=== PATIENT | male | born 1955 | race Caucasian/White ===

== ENCOUNTER 2019-10-03 08:12 | Day surgery (SDC) | payer OTHER, SELFPAY ==
[2019-10-03] VITALS (8 sets, daily range): BP systolic 91–118; BP diastolic 62–80; PULSE 53–67; RESP 16; TEMP 36.2–37.1; O2SAT 96–100; BMI 21.2
[2019-10-03] MEDS: Lactated Ringers 1,000 ML 100 ML IV (08:50)
--- NOTE | 2019-10-03 09:05 | PCM.HP.STD ---
Problem List (1) Screening for intestinal cancer Status: Acute History of Present Illness Date of Admission: 10/03/19 The patient is a 64 year old M who presents today via open access for screening colonoscopy. His previous colonoscopy was 11 years ago. He denies bright red blood per rectum or melena. States that his mother had colon cancer. He states that occasionally has more of a liquidy stool feels like something is closing off down into his rectum. He does not notice any bright red blood per rectum or melena. No abdominal pain. No unexpected weight loss. Past Medical History Allergies No Known Allergies Allergy (Verified 10/03/19 08:40) Home Medications: Ambulatory Orders Medication Instructions Recorded NK 09/30/19 Smoking Status: Never smoker Tobacco Use: Non-smoker Review of Systems Constitutional: Denies: Anorexia, Chills, Fever Cardiovascular: Denies: Chest Pain Respiratory: Denies: Cough, Shortness of Breath Gastrointestinal: Denies: Abdominal Pain, Melena Endocrine: Denies: Change in Body Habitus VTE Information - Inpt Only VTE Present on Admission: No Patient Problems: Active and Suspected Problems Screening for intestinal cancer (Acute) - Physical Exam Vitals/I&O's: Vital Signs Temp Pulse Resp BP Pulse Ox 98.7 F 67 16 118/80 100 10/03/19 08:43 10/03/19 08:43 10/03/19 08:43 10/03/19 08:43 10/03/19 08:43 Oxygen Delivery Method Room Air Weight: 152 lb 1.903 oz Body Mass Index (BMI) 21.2 General: Alert, Oriented x3, Cooperative, No apparent distress HEENT: Atraumatic Oral: Moist Mucosa Lungs: Clear to auscultation, Normal air movement Cardiovascular: Regular rate, Regular Rhythm Abdomen: Bowel Sounds Present, Soft, Non Tender, Non-Distended Extremities: No Calf Tenderness Neurological: - - Normal cognition Psych/Mental Status: Normal Affect Current Medications Lactated Ringer's () 1,000 mls @ 100 mls/hr IV .Q10H MYRTLE Last Admin: 10/03/19 08:50 Dose: 100 mls/hr Documented by: Assessment/Plan All Active Problems Screening for intestinal cancer (Acute) 64-year-old gentleman with a family history of colon cancer in his mother. Previous colonoscopy 11 years ago. I propose for him a screening colonoscopy with possible biopsy or polypectomy is indicated. He has had an opportunity to ask and have questions answered. He presents via our open access program today. We will proceed as noted. Mario Iqbal M.D., F.A.C.S.
--- NOTE | 2019-10-03 09:54 | OP.CCLET_ITS ---
10/03/2019 Mario Littlejohn [address] [place] [address] Re : Colonoscopy procedure for Arnol Jimenez Dear Dr. Littlejohn This procedure was performed on Thursday, October 03, 2019. My impressions and recommendations are as follows: Impressions : - Non-thrombosed internal hemorrhoids and internal hemorrhoids that prolapse with straining, but require manual replacement into the anal canal (Grade III) found on perianal exam. - Tortuous colon. - The examination was otherwise normal. - No specimens collected. Recommendations : - Discharge patient to home. - Resume previous diet. - Continue present medications. - Repeat colonoscopy in 5 years for surveillance. - Telephone my office in 3 days to discuss sensation of something blocking rectum. Could be hemorrhoids but also possibly degree of sigmoid volvulus. Consider Harini if he wants to proceed with investigation. My findings are described in the full procedure note, which is enclosed. If I can be of further assistance, please feel free to contact me at Doctor phone number(s): Work: . Sincerely, Mario Iqbal MD 10/03/2019 9:54:15 AM This report has been signed electronically.
--- NOTE | 2019-10-03 09:54 | OP.COLON_ITS ---
Patient Name: Arnol Jimenez Procedure Date: 10/03/2019 9:24 AM Date of : 1955 Age: 64 Procedure: Colonoscopy Indications: Family history of colon cancer in a first-degree relative Providers: Mario Iqbal MD Referring MD: Mario Iqbal MD Medicines: See the Anesthesia note for documentation of the administered medications Patient Profile: Last Colonoscopy: more than 10 years ago. Complications: No immediate complications. Procedure: Pre-Anesthesia Assessment: - Prior to the procedure, a History and Physical was performed, and patient medications and allergies were reviewed. The patient's tolerance of previous anesthesia was also reviewed. The risks and benefits of the procedure and the sedation options and risks were discussed with the patient. All questions were answered, and informed consent was obtained. Prior Anticoagulants: The patient has taken no previous anticoagulant or antiplatelet agents. ASA Grade Assessment: II - A patient with mild systemic disease. After reviewing the risks and benefits, the patient was deemed in satisfactory condition to undergo the procedure. After I obtained informed consent, the scope was passed under direct vision. Throughout the procedure, the patient's blood pressure, pulse, and oxygen saturations were monitored continuously. The colonoscope was introduced through the anus and advanced to the cecum, identified by appendiceal orifice and ileocecal valve. The colonoscopy was somewhat difficult due to a tortuous colon. Successful completion of the procedure was aided by changing the patient to a supine position. The patient tolerated the procedure well. The quality of the bowel preparation was good. The ileocecal valve and the appendiceal orifice were photographed. Scope In: 9:31:46 AM Scope Withdrawal Time 0 hours 6 minutes 9 seconds Scope Out: 9:46:51 AM Total Procedure Duration Time 0 hours 15 minutes 5 seconds Findings: The perianal exam findings include non-thrombosed internal hemorrhoids and internal hemorrhoids that prolapse with straining, but require manual replacement into the anal canal (Grade III). The colon (entire examined portion) was moderately tortuous. The exam was otherwise without abnormality. Impression: - Non-thrombosed internal hemorrhoids and internal hemorrhoids that prolapse with straining, but require manual replacement into the anal canal (Grade III) found on perianal exam. - Tortuous colon. - The examination was otherwise normal. - No specimens collected. Recommendation: - Discharge patient to home. - Resume previous diet. - Continue present medications. - Repeat colonoscopy in 5 years for surveillance. - Telephone my office in 3 days to discuss sensation of something blocking rectum. Could be hemorrhoids but also possibly degree of sigmoid volvulus. Consider Harini if he wants to proceed with investigation. Procedure Code(s): --- Professional --- 33939, Colonoscopy, flexible; diagnostic, including collection of specimen(s) by brushing or washing, when performed (separate procedure) Diagnosis Code(s): --- Professional --- K64.2, Third degree hemorrhoids Z80.0, Family history of malignant neoplasm of digestive organs Q43.8, Other specified congenital malformations of intestine CPT copyright 2017 [employer]. All rights reserved. The codes documented in this report are preliminary and upon report specialist review may be revised to meet current compliance requirements. Mario Iqbal MD 10/03/2019 9:54:15 AM This report has been signed electronically. Number of Addenda: 0 Note Initiated On: 10/03/2019 9:24 AM
== END 2019-10-03 10:49 | disposition home or self-care (01) ==
LOC: EN 08:16 → AC 08:17
PROVIDERS: PCP Preventive Medicine Occupational Medicine; Referring Provider Surgery; Visit Provider Surgery
PROC: 0DJD8ZZ Inspection of Lower Intestinal Tract, Via Natural or Artificial Opening Endoscopic (ICD-10-PCS; CPT 45378; principal; 2019-10-03 09:05)
DX: Z12.11 Encounter for screening for malignant neoplasm of colon (principal); K64.2 Third degree hemorrhoids; Q43.8 Other specified congenital malformations of intestine; Z80.0 Family history of malignant neoplasm of digestive organs
CPT/HCPCS: 45378; J7120; J2405

== ENCOUNTER 2024-09-24 10:41 | Day surgery (SDC) | payer MEDICARE, OTHER, SELFPAY ==
[2024-09-24] VITALS (8 sets, daily range): BP systolic 100–112; BP diastolic 67–74; PULSE 52–68; RESP 14–16; TEMP 36.3–37.1; O2SAT 99–100; BMI 20.6
--- NOTE | 2024-09-24 11:03 | PRE.ANES_ITS ---
ASA Classification* ASA Classification ASA Classification: 2 Assessment & Plan Anesthesia* Anesthesia Assessment Anesthesia Assessment: Discussed sedation and/or anesthesia options, risks, benefits, and alternatives with patient/parents/legal guardian/POA. Questions invited. The patient/parents/legal guardian/POA seems to understand and agrees to proceed with anesthesia plan. Reviewed the physical assessment, medical history, allergy history and patient home medications list prior to surgery/procedure/anesthetic and documented any changes. Performed airway and anesthesia risk assessments. Anesthesia Type Anesthesia Type: MAC Anesthesia Focused Assessment* Airway Assessment Mouth opens: >3 cm Mallampati Score: II Focused Labs Anesthesia Preop lab: CBC WBC 4.7 K/mm3 (4.4-11.0) 11/17/16 08:11/17/16 RBC 4.94 M/mm3 (4.6-6.2) 11/17/16 08:27 11/17/16 Hgb 15.0 g/dl (13.0-16.5) 11/17/16 08:27 11/17/16 Hct 44.9 % (40-54) 11/17/16 08:27 11/17/16 Plt Count 173 K/mm3 (150-450) 11/17/16 08:27 11/17/16 CHEMISTRY Potassium 4.3 mmol/L (3.5-5.1) 11/17/16 08:27 11/17/16 Sodium 140 mmol/L (136-145) 11/17/16 08:27 11/17/16 BUN 17 mg/dL (7-18) 11/17/16 08:27 11/17/16 Creatinine 0.88 mg/dL (0.70-1.30) 11/17/16 08:27 11/17/16 Glucose 93 mg/dL (70-110) 11/17/16 08:27 11/17/16 TSH 2.48 uIU/mL (0.358-3.74) 11/17/16 08:27 COAG Pre-Assessment Diagnosis/Proposed Procedure Planned Operative Procedure(s): COLONOSCOPY, EGD Anesthesia History 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 When Was Last Pacemaker Check QUESTION #4 FULL TEXT: You/Your Family Experience fever (hyperthermia) with Anesthesia Last Oral Intake Last Oral intake: Last Oral Intake NPO since Meds taken in AM with sips of water? Meds patient instructed to take am of surgery PONV PONV - field kiln burner: PONV - field kiln burner Female No 09/22/24 10:25 HX of Motion Sickness No 09/22/24 10:25 HX of N/V After Surgery No 09/22/24 10:25 Non-Smoker Yes 09/22/24 10:25 Duration of Surgery greater No 09/22/24 10:25 than 60 minutes Number of Risk Factors 1 09/22/24 10:25 PONV Score Low Risk 09/22/24 10:25 Respiratory Assessment Respiratory Assessment - field kiln burner: Respiratory Tract Infection Hx - field kiln burner Hx Respiratory Tract Infection No 09/22/24 10:25 STOP Sleep Apnea STOP Sleep Apnea - field kiln burner: STOP Sleep Apnea - field kiln burner Hx Hypertension No 09/22/24 10:25 Hx Sleep Apnea No 09/22/24 10:25 CPAP BIPAP Do you snore loudly (louder No 09/22/24 10:25 than talking or can be heard Do you often feel tired/ No 09/22/24 10:25 fatigued/ sleepy during daytime? Has anyone observed you stop No 09/22/24 10:25 breathing during sleep? STOP Results Negative 09/22/24 10:25 QUESTION #5 FULL TEXT : Do you snore loudly (louder than talking or can be heard through closed doors)? Tobacco Use History Tobacco Use History - field kiln burner: Tobacco Use History - field kiln burner Tobacco Use Smoking Status Never smoker 09/22/24 10:25 Hx Tobacco Use No 09/22/24 10:25 Years Smoking Packs Smoked per Day Smoking Cessation Date was within the last 15 years Hx Smoking Cessation Date Hx Smoking Cessation Counseling Hematologic Medial History Hematologic Hx - field kiln burner: Hematologic Medical Hx - documentation spec Hx of Blood Transfusion No 09/22/24 10:25 Hx of Transfusion in last 3 No 09/22/24 10:25 Months Date of Last Transfusion (if within last 3 months) Ever experience any problems No 09/22/24 10:25 with transfusion(s)? Specify any problems Hx of Preganancy in last 3 N/A 09/22/24 10:25 Months Nurse Filling Out Transfusion [facility] 09/22/24 10:25 & Questions: Date: 09/22/24 09/22/24 10:25 Time: 10:30 09/22/24 10:25 Patient unable to answer at this time (ie. confused, unrespo /Reproduction History /Reproductive History - field kiln burner: /Reproductive Hx- field kiln burner Hx Now No 09/22/24 10:25 Gestational Age (in weeks): EDC: Hx Hx Para Hx Section SAB PFSH Medical History Wears partial dentures Wears glasses Arthritis Dietary restriction History of IBS Gastric reflux Non-smoker Inguinal hernia Decreased libido Abdominal pain Tinea cruris Peripheral neuropathy Internal hemorrhoids with complication Fatigue Erectile dysfunction Chronic diarrhea Home Medications ?Medication ?Instructions ?Recorded ?Last Taken ?Type sildenafil 100 mg tablet 100 mg PO QDAY PRN erectile 06/24/24 Unknown History dysfunction Allergy/AdvReac Type Severity Reaction Status Date / Time gluten AdvReac Unknown Diarrhea Verified 09/22/24 10:23 Family History Brother Hypertension Mother Colon cancer Surgical History History of hernia surgery H/O hemorrhoidectomy Social History current occupational status: employed Smoking Status: Never smoker alcohol intake: current alcohol intake frequency: a few times a month substance use type: does not use caffeine: Yes Type: coffee Number of servings: 6 what type of physical activity do you participate in: swimming frequency: 5-6 times per week Review of Systems (Anesthesia) ROS Narrative System reviewed and no additional complaints, except as documented.
[2024-09-24] MEDS: Lactated Ringers 1,000 ML 15 ML IV (11:29)
--- NOTE | 2024-09-24 11:45 | EGD_PTH ---
PATIENT: DIETER OCAMPO Jr. LOC: EN U#:[id number] AGE/SX: 69/M ROOM: RE09/24/[address]: Dr. Heraclio Cr DO : 1955 BED: DIS: 09/24/2024 SPEC #: [id number] RECD: 09/24/24 17:33 STATUS: CANDIDA BOWERS #: [id number] CINDA: 09/24/24 11:[address]: Heraclio Cr DEPT: SURGICAL PATHOLOGY RECD BY: Nazario Almeida ENTERED: 09/25/24 10:03 SP TYPE: EGD BIOPSY OT DR: Dr. Mario Littlejohn DO Tissues: A - Esophagus, NOS B - Cecum, NOS C - Sigmoid colon biopsy Procedures: Immunohistochemical Stains Surgery Specimen Level IV IHC Stain ADDITIONAL HEADER OPERATION: Colonoscopy with biopsy, EGD with biopsy and dilatation PRE-OP DIAGNOSIS: Dysphagia, FH: esophageal cancer, screening for intestinal cancer, GERD TISSUE SUBMITTED: A- Distal esophagus biopsy, B- Cecum polyp biopsy, C- Sigmoid polyp biopsy MICROSCOPIC DIAGNOSIS A. 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 * Indefinite, but worrisome for low grade dysplasia - see Comment. * IHC for p53 is wild type. * IHC for Ki67 is not increased at the surface. * Focal scant squamous mucosa noted. B. Colon, cecum, polyp, biopsy: * Serrated polyp with features of sessile serrated lesion. C. Sigmoid colon, polyp, biopsy: * Tubular adenoma. COMMENT Selected slides/images were reviewed in intradepartmental consultation by Dr Evelyne Herrmann (GI pathology division, [facility]). MICROSCOPIC DESCRIPTION Slides are reviewed. All matched controls reacted appropriately. These tests were developed and their performance characteristics determined by [facility]. They may not have been cleared or approved by the U.S. Food and Drug Administration. The FDA has determined that such clearance or approval is not necessary.? The above immunohistochemical/dualISH?markers are ordered and reviewed by the Pathologist. GROSS DESCRIPTION A. Received in formalin in a container labeled with the patient's name, date of , and distal esophagus biopsy are 2 turner-pink fragments of mucosal tissue each measuring 0.5 x 0.3 x 0.2 cm. Submitted in toto in A1. B. Received in formalin in a container labeled with the patient's name, date of , and cecum polyp biopsy is a 0.4 x 0.3 x 0.3 cm fragment of turner-pink mucosal tissue. Submitted in toto in B1. C. Received in formalin in a container labeled with the patient's name, date of , and sigmoid polyp biopsy is a 0.4 x 0.2 x 0.2 cm fragment of turner-pink mucosal tissue. Submitted in toto in C1. [facility] 09-25-2024 CPT:55890m9, 03251, 26405
--- NOTE | 2024-09-24 11:55 | PCM.HP.STD ---
HPI - General General Date of Admission: 09/24/24 Date of Service: 09/24/24 Chief Complaint: dysphagia HPI Narrative DIETER OCAMPO, is a 69 M who presents for endoscopic treatment. Pt reports last scope was in [address] Iqbal. Pt reports he has never had an EGD; father had esophageal cancer. Pt reports symptoms of left sided discomfort since before 2023, HB that pt states TUMs are effective for, and abdominal pain prior to passing gas. Pt reports he had a procedure for his hemorrhoids in the past that he does not think was effective. [facility] Medical History Wears partial dentures Wears glasses Arthritis Dietary restriction History of IBS Gastric reflux Non-smoker Inguinal hernia Decreased libido Abdominal pain Tinea cruris Peripheral neuropathy Internal hemorrhoids with complication Fatigue Erectile dysfunction Chronic diarrhea Home Medications ?Medication ?Instructions ?Recorded ?Last Taken ?Type sildenafil 100 mg tablet 100 mg PO QDAY PRN erectile 06/24/24 Unknown History dysfunction Allergy/AdvReac Type Severity Reaction Status Date / Time gluten AdvReac Unknown Diarrhea Verified 09/24/24 11:13 Family History Brother Hypertension Mother Colon cancer Surgical History History of hernia surgery H/O hemorrhoidectomy Social History current occupational status: employed Smoking Status: Never smoker alcohol intake: current alcohol intake frequency: a few times a month substance use type: does not use caffeine: Yes Type: coffee Number of servings: 6 what type of physical activity do you participate in: swimming frequency: 5-6 times per week ROS Constitutional Constitutional: Denies fatigue, fever(s), poor appetite, weight gain or weight loss Gastrointestinal Gastrointestinal: Denies belching, bloating, change in bowel habits, change in stool character, chewing difficulty, coffee ground emesis, constipation, cramping, diarrhea, dyspepsia, dysphagia, early satiety, excessive flatus, fecal incontinence, heartburn, hematemesis, hematochezia, hemorrhoids, loose stools, melena, nausea, odynophagia, rectal bleeding, tenesmus, vomiting or weight changes Vital Signs Vital Signs Vital Signs: 09/24/24 11:13 09/24/24 11:13 Temperature 98.7 F Temperature Source Temporal Pulse Rate 68 Respiratory Rate 16 Respiratory Pattern Normal Blood Pressure 106/73 Blood Pressure Mean 84 Blood Pressure Source Monitor Blood Pressure Position Sitting Blood Pressure Location Right Arm Pulse Ox 100 Oxygen Delivery Method Room Air Weight Weight: 148 lb 2.41 oz Body Mass Index (BMI) 20.6 Physical Exam Const alert, oriented x3, no apparent distress and healthy appearing General Appearance: cooperative GI normal to inspection, nondistended, normoactive bowel sounds, soft to palpation, non-tender and non-distended Percussion: normal to percussion Rectal Exam: deferred Assessment & Plan Assessment/Plan (1) Dysphagia: (2) FH: esophageal cancer: (3) Screening for intestinal cancer: (4) GERD (gastroesophageal reflux disease): PLAN: Assessment and Plan Assessment and Plan (1) Screening for intestinal cancer: Status: Acute Plan: During his last colonoscopy back in 2019 he did not have any polyps but he did have polyps prior to that. The findings on the colonoscopy are as follows findings: The perianal exam findings include non-thrombosed internal hemorrhoids and internal hemorrhoids that prolapse with straining, but require manual replacement into the anal canal (Grade III). The colon (entire examined portion) was moderately tortuous. The exam was otherwise without abnormality. Impression: - Non-thrombosed internal hemorrhoids and internal hemorrhoids that prolapse with straining, but require manual replacement into the anal canal (Grade III) found on perianal exam. - Tortuous colon. - The examination was otherwise normal. - No specimens collected. Recommendation: - Discharge patient to home. - Resume previous diet. - Continue present medications. - Repeat colonoscopy in 5 years for surveillance. - Telephone my office in 3 days to discuss sensation of something blocking rectum. Could be hemorrhoids but also possibly degree of sigmoid volvulus. Consider Harini if he wants to proceed with investigation. He will repeat his colonoscopy to evaluate his right lower quadrant pain and to give surveillance of his history of polyps. (2) FH: esophageal cancer: Status: Acute Plan: His father of esophageal cancer (3) GERD (gastroesophageal reflux disease): Status: Acute Plan: He only takes Tums [id number] as needed for daily reflux disease. He does drink about 3 cups of coffee a day but is adamant swimmer. He does not want to go on medicine for reflux and. (4) Dysphagia: Status: Acute Plan: He is having dysphagia mostly solid foods. He will undergo upper endoscopy to evaluate his upper GI tract for possible esophageal dilation and biopsies.
--- NOTE | 2024-09-24 13:17 | OP.CCLET_ITS ---
09/24/2024 Mario Littlejohn [address] [place] [address] Re : Upper GI endoscopy procedure for Arnol Jimenez Dear Dr. Littlejohn This procedure was performed on Tuesday, September 24, 2024. My impressions and recommendations are as follows: Impressions : - LA Grade C reflux esophagitis with no bleeding. Biopsied. - Benign-appearing esophageal stenosis. Dilated. - No gross lesions in the entire stomach. - No gross lesions in the entire examined duodenum. Recommendations : - Discharge patient to home. - Resume previous diet. - Continue present medications. - Await pathology results. - Use Protonix (pantoprazole) 40 mg PO BID for 3 months. My findings are described in the full procedure note, which is enclosed. If I can be of further assistance, please feel free to contact me at . Sincerely, Heraclio Cr, 09/24/2024 1:16:43 PM This report has been signed electronically.
--- NOTE | 2024-09-24 13:17 | OP.EGD_ITS ---
Patient Name: Arnol Jimenez Procedure Date: 09/24/2024 12:33 PM Date of : 1955 Age: 69 Procedure: Upper GI endoscopy Indications: Dysphagia, Heartburn Providers: DO Romeo Wolf MD: Mario Littlejohn Medicines: Monitored Anesthesia Care Patient Profile: This is a 69 year old male. Refer to note in patient chart for documentation of history and physical. Patient has symptoms of chronic dysphagia and dysphagia with both liquids and solids. Complications: No immediate complications. Procedure: Pre-Anesthesia Assessment: - Prior to the procedure, a History and Physical was performed, and patient medications and allergies were reviewed. The patient is competent. The risks and benefits of the procedure and the sedation options and risks were discussed with the patient. All questions were answered and informed consent was obtained. Patient identification and proposed procedure were verified by the physician in the pre-procedure area. Mental Status Examination: alert and oriented. Airway Examination: normal oropharyngeal airway and neck mobility. Respiratory Examination: clear to auscultation. CV Examination: normal. Prophylactic Antibiotics: The patient does not require prophylactic antibiotics. Prior Anticoagulants: The patient has taken no anticoagulant or antiplatelet agents except for NSAID medication. ASA Grade Assessment: II - A patient with mild systemic disease. After reviewing the risks and benefits, the patient was deemed in satisfactory condition to undergo the procedure. The anesthesia plan was to use monitored anesthesia care (MAC). Immediately prior to administration of medications, the patient was re-assessed for adequacy to receive sedatives. The heart rate, respiratory rate, oxygen saturations, blood pressure, adequacy of pulmonary ventilation, and response to care were monitored throughout the procedure. The physical status of the patient was re-assessed after the procedure. After obtaining informed consent, the endoscope was passed under direct vision. Throughout the procedure, the patient's blood pressure, pulse, and oxygen saturations were monitored continuously. The Colonoscope was introduced through the mouth, and advanced to the second part of duodenum. The upper GI endoscopy was accomplished without difficulty. The patient tolerated the procedure well. Scope In: 12:44:24 PM Scope Out: 12:49:03 PM Total Procedure Duration Time 0 hours 4 minutes 39 seconds Findings: LA Grade C (one or more mucosal breaks continuous between tops of 2 or more mucosal folds, less than 75% circumference) esophagitis with no bleeding was found 36 to 39 cm from the incisors. Biopsies were taken with a cold forceps for histology. Verification of patient identification for the specimen was done. Estimated blood loss was minimal. One benign-appearing, intrinsic moderate stenosis was found 39 to 42 cm from the incisors. The stenosis was traversed. A guidewire was placed and the scope was withdrawn. Dilation was performed with a Savary dilator with no resistance at 57 Fr. The dilation site was examined and showed moderate improvement in luminal narrowing. Estimated blood loss was minimal. No gross lesions were noted in the entire examined stomach. No gross lesions were noted in the entire examined duodenum. Impression: - LA Grade C reflux esophagitis with no bleeding. Biopsied. - Benign-appearing esophageal stenosis. Dilated. - No gross lesions in the entire stomach. - No gross lesions in the entire examined duodenum. Recommendation: - Discharge patient to home. - Resume previous diet. - Continue present medications. - Await pathology results. - Use Protonix (pantoprazole) 40 mg PO BID for 3 months. Procedure Code(s): --- Professional --- 05604, Esophagogastroduodenoscopy, flexible, transoral; with insertion of guide wire followed by passage of dilator(s) through esophagus over guide wire 35504, 59,51, Esophagogastroduodenoscopy, flexible, transoral; with biopsy, single or multiple CPT copyright 2021 [employer]. All rights reserved. The codes documented in this report are preliminary and upon fitness and wellness director review may be revised to meet current compliance requirements. Heraclio Cr DO 09/24/2024 1:16:43 PM This report has been signed electronically. Number of Addenda: 0 Note Initiated On: 09/24/2024 12:33 PM
--- NOTE | 2024-09-24 13:19 | OP.COLON_ITS ---
Patient Name: Arnol Jimenez Procedure Date: 09/24/2024 12:49 PM Date of : 1955 Age: 69 Procedure: Colonoscopy Indications: Screening for colorectal malignant neoplasm Providers: DO Romeo Wolf MD: Mario Littlejohn Medicines: Monitored Anesthesia Care Patient Profile: This is a 69 year old male. Refer to note in patient chart for documentation of history and physical. Patient has symptoms of chronic dysphagia and dysphagia with both liquids and solids. Last Colonoscopy: several years ago. Complications: No immediate complications. Procedure: Pre-Anesthesia Assessment: - Prior to the procedure, a History and Physical was performed, and patient medications and allergies were reviewed. The patient is competent. The risks and benefits of the procedure and the sedation options and risks were discussed with the patient. All questions were answered and informed consent was obtained. Patient identification and proposed procedure were verified by the physician in the pre-procedure area. Mental Status Examination: alert and oriented. Airway Examination: normal oropharyngeal airway and neck mobility. Respiratory Examination: clear to auscultation. CV Examination: normal. Prophylactic Antibiotics: The patient does not require prophylactic antibiotics. Prior Anticoagulants: The patient has taken no anticoagulant or antiplatelet agents except for NSAID medication. ASA Grade Assessment: II - A patient with mild systemic disease. After reviewing the risks and benefits, the patient was deemed in satisfactory condition to undergo the procedure. The anesthesia plan was to use monitored anesthesia care (MAC). Immediately prior to administration of medications, the patient was re-assessed for adequacy to receive sedatives. The heart rate, respiratory rate, oxygen saturations, blood pressure, adequacy of pulmonary ventilation, and response to care were monitored throughout the procedure. The physical status of the patient was re-assessed after the procedure. After I obtained informed consent, the scope was passed under direct vision. Throughout the procedure, the patient's blood pressure, pulse, and oxygen saturations were monitored continuously. The Colonoscope was introduced through the anus and advanced to the cecum, identified by appendiceal orifice and ileocecal valve. The colonoscopy was performed without difficulty. The patient tolerated the procedure well. The quality of the bowel preparation was adequate. The ileocecal valve, appendiceal orifice, and rectum were photographed. Scope In: 12:50:50 PM Scope Withdrawal Time 0 hours 15 minutes 25 seconds Scope Out: 1:10:03 PM Total Procedure Duration Time 0 hours 19 minutes 13 seconds Findings: Two sessile polyps were found in the sigmoid colon and cecum. The polyps were 7 mm in size. These polyps were removed with a jumbo cold forceps. Resection and retrieval were complete. Verification of patient identification for the specimen was done. Estimated blood loss was minimal. The exam was otherwise without abnormality on direct and retroflexion views. A few small-mouthed diverticula were found in the recto-sigmoid colon, sigmoid colon and ascending colon. Impression: - Two 7 mm polyps in the sigmoid colon and in the cecum, removed with a jumbo cold forceps. Resected and retrieved. - The examination was otherwise normal on direct and retroflexion views. Recommendation: - Discharge patient to home. - Resume previous diet. - Continue present medications. - Await pathology results. - Repeat colonoscopy in 5 years for surveillance. - Return to GI office. Procedure Code(s): --- Professional --- 35168, Colonoscopy, flexible; with biopsy, single or multiple CPT copyright 2021 [employer]. All rights reserved. The codes documented in this report are preliminary and upon carriage rider review may be revised to meet current compliance requirements. Heraclio Cr DO 09/24/2024 1:19:14 PM This report has been signed electronically. Number of Addenda: 0 Note Initiated On: 09/24/2024 12:49 PM
--- NOTE | 2024-09-24 13:19 | OP.CCLET_ITS ---
09/24/2024 Mario Littlejohn [address] [place] [address] Re : Colonoscopy procedure for Arnol Ochoapipo Dear Dr. Littlejohn This procedure was performed on Tuesday, September 24, 2024. My impressions and recommendations are as follows: Impressions : - Two 7 mm polyps in the sigmoid colon and in the cecum, removed with a jumbo cold forceps. Resected and retrieved. - The examination was otherwise normal on direct and retroflexion views. Recommendations : - Discharge patient to home. - Resume previous diet. - Continue present medications. - Await pathology results. - Repeat colonoscopy in 5 years for surveillance. - Return to GI office. My findings are described in the full procedure note, which is enclosed. If I can be of further assistance, please feel free to contact me at . Sincerely, Heraclio Cr, 09/24/2024 1:19:14 PM This report has been signed electronically.
--- NOTE | 2024-09-24 13:20 | PCM.POST.ANE ---
Anesthesia: Postop Eval I Current Vital Signs Temperature: 97.8 F Pulse Rate: 56 Blood Pressure: 100/69 Respiratory Rate: 14 Pulse Ox: 100 Oxygen Delivery Method: Room Air Assessment Airway patent: Yes Spontaneous unlabored respirations: Yes Mental status: Awake and Calm nausea: No Vomiting: No Anesthesia Complication: No Fluid Hydration Crystalloid volume administer (ml): 900 Total IV fluid infused: 900 Progress Note Anesthesia document: Postop Eval 1 completed: Yes
--- NOTE | 2024-09-24 14:09 | PCM.POSTANE2 ---
Anesthesia Postop Eval I Sum Postop Eval Completion status Anesthesia document: Postop Eval 1 completed: Yes Anesthesia Postop Eval I Summary Anesthesia Postop Eval I Summary: Anesthesia Postop Eval I: Assessment Summary Airway patent Yes 09/24/24 13:21 [email or web address] Spontaneous unlabored Yes 09/24/24 13:21 [email or web address] respirations Mental status Awake,Calm 09/24/24 13:21 [email or web address] nausea No 09/24/24 13:21 [email or web address] Vomiting No 09/24/24 13:21 [email or web address] Anesthesia Postop Eval I: Fluid Summary Crystalloid volume administer 900 09/24/24 13:21 [email or web address] (ml) Colloids volume administered ( ml) Blood Product volume administered (ml) Total IV fluid infused 900 09/24/24 13:21 [email or web address] Anesthesia Postop Eval I: Summary Notes Anesthesia Complication No 09/24/24 13:21 [email or web address] Anesthesia Complication Comment: Post-operative progress note Anesthesia: Postop Eval II Evaluation Mental status: Awake Pain Level: 0 nausea: No Vomiting: No
== END 2024-09-24 14:26 | disposition home or self-care (01) ==
LOC: EN 10:48 → AC 10:50
PROVIDERS: PCP Preventive Medicine Occupational Medicine; Referring Provider Preventive Medicine Occupational Medicine; Visit Provider Internal Medicine Gastroenterology
PROC: 0DJD8ZZ Inspection of Lower Intestinal Tract, Via Natural or Artificial Opening Endoscopic (ICD-10-PCS; CPT 45378; principal; 2024-09-24 11:40)
DX: Z12.11 Encounter for screening for malignant neoplasm of colon (principal); D12.0 Benign neoplasm of cecum; D12.5 Benign neoplasm of sigmoid colon; K57.30 Diverticulosis of large intestine without perforation or abscess without bleeding; K22.710 Barrett's esophagus with low grade dysplasia; K22.2 Esophageal obstruction; K21.00 Gastro-esophageal reflux disease with esophagitis, without bleeding; Z80.0 Family history of malignant neoplasm of digestive organs
CPT/HCPCS: 45380; 43248; 43239; 88305; 88341; 88342; C1769; J2405

== ENCOUNTER 2025-04-29 08:27 | Day surgery (SDC) | payer MEDICARE, OTHER, SELFPAY ==
--- NOTE | 2025-04-29 08:46 | PCM.PRE.AN2 ---
ASA Classification* ASA Classification ASA Classification: 2 Assessment & Plan Anesthesia* Anesthesia Assessment Anesthesia Assessment: Discussed sedation and/or anesthesia options, risks, benefits, and alternatives with patient/parents/legal guardian/POA. Questions invited. The patient/parents/legal guardian/POA seems to understand and agrees to proceed with anesthesia plan. Reviewed the physical assessment, medical history, allergy history and patient home medications list prior to surgery/procedure/anesthetic and documented any changes. Performed airway and anesthesia risk assessments. Anesthesia Type Anesthesia Type: MAC Anesthesia Focused Assessment* Airway Assessment Mouth opens: >3 cm Mallampati Score: II Labs Anesthesia Preop lab: CBC WBC, (4.4-11.0) 4.7 K/mm3 11/17/16, 08: RBC, (4.6-6.2) 4.94 M/mm3 11/17/16, : Hgb, (13.0-16.5) 15.0 g/dl 11/17/16, : Hct, (40-54) 44.9 % 11/17/16, : Plt Count, (150-450) 173 K/mm3 11/17/16, 08:27 CHEMISTRY Potassium, (3.5-5.1) 4.3 mmol/L 11/17/16, 08:27 Sodium, (136-145) 140 mmol/L 11/17/16, 08:27 BUN, (7-18) 17 mg/dL 11/17/16, 08: Creatinine, (0.70-1.30) 0.88 mg/dL 11/17/16, : Glucose, (70-110) 93 mg/dL 11/17/16, 08:27 TSH, (0.358-3.74) 2.48 uIU/mL 11/17/16, 08:27 COAG Pre-Assessment Diagnosis/Proposed Procedure Planned Operative Procedure(s): EGD Anesthesia History 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 When Was Last Pacemaker Check QUESTION #4 FULL TEXT: You/Your Family Experience fever (hyperthermia) with Anesthesia Last Oral Intake Last Oral intake: Last Oral Intake NPO since Meds taken in AM with sips of water? Meds patient instructed to take am of surgery PONV PONV - photo graphics librarian: PONV - photo graphics librarian Female No 04/27/25 10:10 HX of Motion Sickness No 04/27/25 10:10 HX of N/V After Surgery No 04/27/25 10:10 Non-Smoker Yes 04/27/25 10:10 Duration of Surgery greater No 04/27/25 10:10 than 60 minutes Number of Risk Factors 1 04/27/25 10:10 PONV Score Low Risk 04/27/25 10:10 Height & Weight Height & Weight: Anesthesia: Height & Weight Height 5 ft 11 in 10/24/24 14:04 Respiratory Assessment Respiratory Assessment - photo graphics librarian: Respiratory Tract Infection Hx - photo graphics librarian Hx Respiratory Tract Infection No 04/27/25 10:10 STOP Sleep Apnea STOP Sleep Apnea - photo graphics librarian: STOP Sleep Apnea - photo graphics librarian Hx Hypertension No 04/27/25 10:10 Hx Sleep Apnea No 04/27/25 10:10 CPAP BIPAP Do you snore loudly (louder No 04/27/25 10:10 than talking or can be heard Do you often feel tired/ No 04/27/25 10:10 fatigued/ sleepy during daytime? Has anyone observed you stop No 04/27/25 10:10 breathing during sleep? STOP Results Negative 04/27/25 10:10 QUESTION #5 FULL TEXT : Do you snore loudly (louder than talking or can be heard through closed doors)? 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 Specify any problems Hx of Preganancy in last 3 N/A 04/27/25 10:10 Months Nurse Filling Out Transfusion [email or web address] 04/27/25 10:10 & Questions: Date: 04/27/25 04/27/25 10:10 Time: 10:12 04/27/25 10:10 Patient unable to answer at this time (ie. confused, unrespo /Reproduction History /Reproductive History - photo graphics librarian: /Reproductive Hx- photo graphics librarian Hx Now Gestational Age (in weeks): EDC: Hx Hx Para Hx Section SAB Does the father of the baby or his family experience fever w Father of the baby Malignant Hypertension history comment Active Medications Active Medications: Current Medications Generic Name Dose Route Start Last Admin Trade Name Freq PRN Reason Stop Dose Admin Lactated Ringer's 1,000 mls @ 15 mls/hr 04/29/25 08:45 IV .Q48H MYRTLE PFSH Medical History Wears partial dentures Wears glasses Arthritis Dietary restriction History of IBS Gastric reflux Non-smoker Inguinal hernia Decreased libido Abdominal pain Tinea cruris Peripheral neuropathy Internal hemorrhoids with complication Fatigue Erectile dysfunction Chronic diarrhea Home Medications Medication Instructions Recorded Last Taken Type sildenafil 100 mg tablet 100 mg PO QDAY PRN erectile 06/24/24 Unknown History dysfunction Allergy/AdvReac Type Severity Reaction Status Date / Time gluten AdvReac Unknown Diarrhea Verified 04/29/25 08:46 Family History Brother Hypertension Mother Colon cancer Surgical History History of hernia surgery H/O hemorrhoidectomy Social History current occupational status: employed Smoking Status: Never smoker alcohol intake: current alcohol intake frequency: a few times a month substance use type: does not use caffeine: Yes Type: coffee Number of servings: 6 what type of physical activity do you participate in: swimming frequency: 5-6 times per week Review of Systems (Anesthesia) ROS Narrative System reviewed and no additional complaints, except as documented.
[2025-04-29 08:50] VITALS: BP 114/79; PULSE 50; RESP 16; TEMP 36.3; O2SAT 99; BMI 21.2
--- NOTE | 2025-04-29 09:02 | PCM.HP.STD ---
HPI - General General Date of Admission: 04/29/25 Date of Service: 04/29/25 HPI Narrative DIETER OCAMPO, is a 69 M who presents [ DIETER OCAMPO is a 69 M who presents to the office today for follow up. *I established 07.18.24 pt reports that he is establishing care prior to a colonoscopy. Pt reports last scope was in [address] Iqbal. Pt reports he has never had an EGD; father had esophageal cancer. Pt reports symptoms of right sided discomfort since before 2023, HB that pt states TUMs are effective for, and abdominal pain prior to passing gas. Pt reports he had a procedure for his hemorrhoids in the past that he does not think was effective. EGD and Colonoscopy 09.24.24 EGD LA Grade C reflux esophagitis with no bleeding. Biopsied. Benign-appearing esophageal stenosis. Dilated. No gross lesions in the entire stomach. No gross lesions in the entire examined duodenum. Colonoscopy Two 7 mm polyps in the sigmoid colon and in the cecum, removed with a jumbo cold forceps. Resected and retrieved. The examination was otherwise normal on direct and retroflexion views. OV 6.07.22 pt reports ongoing right sided abdominal pain that is worse at night; states it feels like a dull ache. Pt is here to review test results. ] [facility] Medical History Wears partial dentures Wears glasses Arthritis Dietary restriction History of IBS Gastric reflux Non-smoker Inguinal hernia Decreased libido Abdominal pain Tinea cruris Peripheral neuropathy Internal hemorrhoids with complication Fatigue Erectile dysfunction Chronic diarrhea Home Medications Medication Instructions Recorded Last Taken Type sildenafil 100 mg tablet 100 mg PO QDAY PRN erectile 06/24/24 Unknown History dysfunction CARLY 2 tab PO QHS sleep 04/29/25 04/28/25 History melatonin 10 mg capsule 10 mg PO QHS 04/29/25 04/28/25 History skullcap 100 mg capsule 100 mg PO DAILY sleep 04/29/25 04/28/25 History Allergy/AdvReac Type Severity Reaction Status Date / Time gluten AdvReac Unknown Diarrhea Verified 04/29/25 08:46 Family History Brother Hypertension Mother Colon cancer Surgical History History of hernia surgery H/O hemorrhoidectomy Social History current occupational status: employed Smoking Status: Never smoker alcohol intake: current alcohol intake frequency: a few times a month substance use type: does not use caffeine: Yes Type: coffee Number of servings: 6 what type of physical activity do you participate in: swimming frequency: 5-6 times per week ROS Constitutional Constitutional: Denies fatigue, fever(s), poor appetite, weight gain or weight loss Gastrointestinal Gastrointestinal: Denies belching, bloating, change in bowel habits, change in stool character, chewing difficulty, coffee ground emesis, constipation, cramping, diarrhea, dyspepsia, dysphagia, early satiety, excessive flatus, fecal incontinence, heartburn, hematemesis, hematochezia, hemorrhoids, loose stools, melena, nausea, odynophagia, rectal bleeding, tenesmus, vomiting or weight changes Vital Signs Vital Signs Vital Signs: 04/29/25 08:50 04/29/25 08:50 04/29/25 08:50 Temperature 97.4 F L Temperature Source Temporal Pulse Rate 50 L Respiratory Rate 16 Respiratory Pattern Normal Blood Pressure 114/79 Blood Pressure Mean 90 Blood Pressure Source Monitor Blood Pressure Position Semi-Fowlers Blood Pressure Location Left Arm Baseline BP 114/79 Pulse Ox 99 Oxygen Delivery Method Room Air Weight Weight: 152 lb 1.903 oz Body Mass Index (BMI) 21.2 Physical Exam Const alert, oriented x3, no apparent distress and healthy appearing General Appearance: cooperative GI normal to inspection, nondistended, normoactive bowel sounds, soft to palpation, non-tender and non-distended Percussion: normal to percussion Rectal Exam: deferred Assessment & Plan Assessment/Plan (1) Barretts esophagus: (2) Dysphagia: (3) GERD (gastroesophageal reflux disease): (4) FH: esophageal cancer: PLAN: Assessment and Plan Assessment and Plan (1) Screening for intestinal cancer: Status: Acute Plan: During his last colonoscopy back in 2019 he did not have any polyps but he did have polyps prior to that. The findings on the colonoscopy are as follows findings: The perianal exam findings include non-thrombosed internal hemorrhoids and internal hemorrhoids that prolapse with straining, but require manual replacement into the anal canal (Grade III). The colon (entire examined portion) was moderately tortuous. The exam was otherwise without abnormality. Impression: - Non-thrombosed internal hemorrhoids and internal hemorrhoids that prolapse with straining, but require manual replacement into the anal canal (Grade III) found on perianal exam. - Tortuous colon. - The examination was otherwise normal. - No specimens collected. Recommendation: - Discharge patient to home. - Resume previous diet. - Continue present medications. - Repeat colonoscopy in 5 years for surveillance. - Telephone my office in 3 days to discuss sensation of something blocking rectum. Could be hemorrhoids but also possibly degree of sigmoid volvulus. Consider Harini if he wants to \ Colonoscopy 10/14/2024 Findings: Two sessile polyps were found in the sigmoid colon and cecum. The polyps were 7 mm in size. These polyps were removed with a jumbo cold forceps. Resection and retrieval were complete. Verification of patient identification for the specimen was done. Estimated blood loss was minimal. The exam was otherwise without abnormality on direct and retroflexion views. A few small-mouthed diverticula were found in the recto-sigmoid colon, sigmoid colon and ascending colon. Impression: - Two 7 mm polyps in the sigmoid colon and in the cecum, removed with a jumbo cold forceps. Resected and retrieved. - The examination was otherwise normal on direct and retroflexion views. Recommendation: - Discharge patient to home. - Resume previous diet. - Continue present medications. - Await pathology results. - Repeat colonoscopy in 3 years for surveillance due to family history of colon cancer. Microscopic diagnosis: B. Colon, cecum, polyp, biopsy: * Serrated polyp with features of sessile serrated lesion. C. Sigmoid colon, polyp, biopsy: * Tubular adenoma. (2) FH: esophageal cancer: Status: Acute Plan: His father of esophageal cancer (3) GERD (gastroesophageal reflux disease): Status: Acute Plan: He only takes Tums [id number] as needed for daily reflux disease. He does drink about 3 cups of coffee a day but is adamant swimmer. He does not want to go on medicine for reflux and. (4) Dysphagia: Status: Acute Plan: He is having dysphagia mostly solid foods. He will undergo upper endoscopy to evaluate his upper GI tract for possible esophageal dilation and biopsies. (5) Barretts esophagus: Status: Acute Plan: Findings: LA Grade C (one or more mucosal breaks continuous between tops of 2 or more mucosal folds, less than 75% circumference) esophagitis with no bleeding was found 36 to 39 cm from the incisors. Biopsies were taken with a cold forceps for histology. Verification of patient identification for the specimen was done. Estimated blood loss was minimal. One benign-appearing, intrinsic moderate stenosis was found 39 to 42 cm from the incisors. The stenosis was traversed. A guidewire was placed and the scope was withdrawn. Dilation was performed with a Condomaniary dilator with no resistance at 57 Fr. The dilation site was examined and showed moderate improvement in luminal narrowing. Estimated blood loss was minimal. No gross lesions were noted in the entire examined stomach. No gross lesions were noted in the entire examined duodenum. Impression: - LA Grade C reflux esophagitis with no bleeding. Biopsied. - Benign-appearing esophageal stenosis. Dilated. - No gross lesions in the entire stomach. - No gross lesions in the entire examined duodenum. Recommendation: - Discharge patient to home. - Resume previous diet. - Continue present medications. - Await pathology results. - Use Protonix (pantoprazole) 40 mg PO BID for 3 months and repeat his upper endoscopy MICROSCOPIC DIAGNOSIS A. 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 * Indefinite, but worrisome for low grade dysplasia - see Comment. * IHC for p53 is wild type. * IHC for Ki67 is not increased at the surface. * Focal scant squamous mucosa noted.
[2025-04-29] MEDS: Lactated Ringers 1,000 ML 15 ML IV (09:07)
--- NOTE | 2025-04-29 09:30 | EGD_PTH ---
PATIENT: DIETER OCAMPO Jr. LOC: EN U#:[id number] AGE/SX: 69/M ROOM: RE04/29/[address]: Dr. Heraclio Cr DO : 1955 BED: DIS: 04/29/2025 SPEC #: [id number] RECD: 04/29/25 12:16 STATUS: CANDIDA ROBINSON #: [id number] CINDA: 04/29/25 09:[address]: Heraclio Cr DEPT: SURGICAL PATHOLOGY RECD BY: Yasemin Mederos ENTERED: 04/30/25 08:52 SP TYPE: EGD BIOPSY DOREEN DR: No Primary Care Phys Tissues: Esophagus, NOS Procedures: Surgery Specimen Level IV HEADER OPERATION: EGD with biopsy PRE-OP DIAGNOSIS: Galvez's esophagus, dysphagia, GERD, family history of esophageal cancer TISSUE SUBMITTED: A- Distal esophagus biopsy MICROSCOPIC DIAGNOSIS A. Esophagus, distal, biopsy: - Benign squamous epithelium - Cardiac mucosa with goblet cell metaplasia, suggesting Galvez's esophagus, and indefinite for dysplasia due to chronic inflammation MICROSCOPIC DESCRIPTION Slides are reviewed. GROSS DESCRIPTION A. Received in fixative is one container labeled with the patient's name and designated "Distal esophagus biopsy." The specimen consists of multiple irregular fragments of utrner tissue that in aggregate measure 1.5 x 0.8 x 0.2 cm. The specimen is totally submitted in one cassette. CA 04/29/2025 CPT:44439
[2025-04-29 10:51] VITALS: BP 105/98; PULSE 56; RESP 20; TEMP 36.1; O2SAT 98
--- NOTE | 2025-04-29 10:51 | PCM.POST.ANE ---
Anesthesia: Postop Eval I Current Vital Signs Temperature: 97 F Pulse Rate: 56 Blood Pressure: 105/98 Respiratory Rate: 20 Pulse Ox: 98 Assessment Airway patent: Yes Spontaneous unlabored respirations: Yes nausea: No Vomiting: No Anesthesia Complication: No Fluid Hydration Crystalloid volume administer (ml): 200 Total IV fluid infused: 200 Progress Note Anesthesia document: Postop Eval 1 completed: Yes
[2025-04-29 10:55] VITALS: BP 100/59; BP 114/79; PULSE 53; RESP 16; TEMP 36.4; O2SAT 95
[2025-04-29 11:00] VITALS: BP 101/62; BP 114/79; PULSE 53; RESP 16; O2SAT 98
--- NOTE | 2025-04-29 11:01 | OP.EGD_ITS ---
Patient Name: Arnol Jimenez Procedure Date: 04/29/2025 10:27 AM Date of : 1955 Age: 69 Procedure: Upper GI endoscopy Indications: Galvez's esophagus indefinite for dysplasia Providers: Heraclio Cr DO Referring MD: Pham Primary Care Physician Medicines: Monitored Anesthesia Care Patient Profile: This is a 69 year old male. Refer to note in patient chart for documentation of history and physical. Patient has symptoms. Complications: No immediate complications. Procedure: Pre-Anesthesia Assessment: - Prior to the procedure, a History and Physical was performed, and patient medications and allergies were reviewed. The patient is competent. The risks and benefits of the procedure and the sedation options and risks were discussed with the patient. All questions were answered and informed consent was obtained. Patient identification and proposed procedure were verified by the physician in the pre-procedure area. Mental Status Examination: alert and oriented. Airway Examination: normal oropharyngeal airway and neck mobility. Respiratory Examination: clear to auscultation. CV Examination: normal. Prophylactic Antibiotics: The patient does not require prophylactic antibiotics. Prior Anticoagulants: The patient has taken no anticoagulant or antiplatelet agents except for NSAID medication. ASA Grade Assessment: II - A patient with mild systemic disease. After reviewing the risks and benefits, the patient was deemed in satisfactory condition to undergo the procedure. The anesthesia plan was to use monitored anesthesia care (MAC). Immediately prior to administration of medications, the patient was re-assessed for adequacy to receive sedatives. The heart rate, respiratory rate, oxygen saturations, blood pressure, adequacy of pulmonary ventilation, and response to care were monitored throughout the procedure. The physical status of the patient was re-assessed after the procedure. After obtaining informed consent, the endoscope was passed under direct vision. Throughout the procedure, the patient's blood pressure, pulse, and oxygen saturations were monitored continuously. The Endoscope was introduced through the mouth, and advanced to the second part of duodenum. The upper GI endoscopy was accomplished without difficulty. The patient tolerated the procedure well. Scope In: 10:40:52 AM Scope Out: 10:47:01 AM Total Procedure Duration Time 0 hours 6 minutes 9 seconds Findings: The esophagus and gastroesophageal junction were examined with white light and narrow band imaging (NBI) from a forward view and retroflexed position. There were esophageal mucosal changes secondary to established long-segment Galvez's disease. These changes involved the mucosa at the upper extent of the gastric folds (40 cm from the incisors) extending to the Z-line (34 cm from the incisors). [place]-colored mucosa was present and no visible abnormalities were present. The maximum longitudinal extent of these esophageal mucosal changes was 6 cm in length. Mucosa was biopsied with a cold forceps for histology in a targeted manner at intervals of 1 cm in the lower third of the esophagus. One specimen bottle was sent to pathology. Verification of patient identification for the specimen was done. Estimated blood loss was minimal. A medium-sized hiatal hernia was present. No other significant abnormalities were identified in a careful examination of the stomach. No gross lesions were noted in the entire examined duodenum. Impression: - Esophageal mucosal changes secondary to established long-segment Galvez's disease. Biopsied. - Medium-sized hiatal hernia. - No gross lesions in the entire examined duodenum. Recommendation: - Discharge patient to home. - Resume previous diet. - Continue present medications. - Await pathology results. - Repeat upper endoscopy in 1 year for surveillance. Procedure Code(s): --- Professional --- 82361, Esophagogastroduodenoscopy, flexible, transoral; with biopsy, single or multiple CPT copyright 2021 [employer]. All rights reserved. The codes documented in this report are preliminary and upon energy project manager review may be revised to meet current compliance requirements. Heraclio Cr DO 04/29/2025 11:01:26 AM This report has been signed electronically. Number of Addenda: 0 Note Initiated On: 04/29/2025 10:27 AM
--- NOTE | 2025-04-29 11:01 | OP.PROVAT_ITS ---
04/29/2025 No Primary Care Physician Re : Upper GI endoscopy procedure for Arnol Jimenez Dear Care Physician This procedure was performed on Tuesday, April 29, 2025. My impressions and recommendations are as follows: Impressions : - Esophageal mucosal changes secondary to established long-segment Galvez's disease. Biopsied. - Medium-sized hiatal hernia. - No gross lesions in the entire examined duodenum. Recommendations : - Discharge patient to home. - Resume previous diet. - Continue present medications. - Await pathology results. - Repeat upper endoscopy in 1 year for surveillance. My findings are described in the full procedure note, which is enclosed. If I can be of further assistance, please feel free to contact me at . Sincerely, Heraclio Cr, 04/29/2025 11:01:26 AM This report has been signed electronically.
[2025-04-29 11:05] VITALS: BP 100/70; BP 114/79; PULSE 52; RESP 16; TEMP 36.2; O2SAT 100
[2025-04-29 11:20] VITALS: BP 114/79
--- NOTE | 2025-04-29 11:22 | POSTOPAN2_ITS ---
Anesthesia Postop Eval I Sum Postop Eval Completion status Anesthesia document: Postop Eval 1 completed: Yes Anesthesia Postop Eval I Summary Anesthesia Postop Eval I Summary: Anesthesia Postop Eval I: Assessment Summary Airway patent Yes 04/29/25 10:51 MACHINE STONE POLISHER.[email or web address] Spontaneous unlabored Yes 04/29/25 10:51 MACHINE STONE POLISHER.CSIR respirations Mental status nausea No 04/29/25 10:51 MACHINE STONE POLISHER.CSIR Vomiting No 04/29/25 10:51 MACHINE STONE POLISHER.CSIR Anesthesia Postop Eval I: Fluid Summary Crystalloid volume administer 200 04/29/25 10:51 MACHINE STONE POLISHER.CSIR (ml) Colloids volume administered ( ml) Blood Product volume administered (ml) Total IV fluid infused 200 04/29/25 10:51 MACHINE STONE POLISHER.CSIR Anesthesia Postop Eval I: Summary Notes Anesthesia Complication No 04/29/25 10:51 MACHINE STONE POLISHER.CSIR Anesthesia Complication Comment: Post-operative progress note Anesthesia: Postop Eval II Evaluation Mental status: Awake Pain Level: 0 nausea: No Vomiting: No
--- NOTE | 2025-04-29 11:22 | PCM.POSTANE2 ---
Anesthesia Postop Eval I Sum Postop Eval Completion status Anesthesia document: Postop Eval 1 completed: Yes Anesthesia Postop Eval I Summary Anesthesia Postop Eval I Summary: Anesthesia Postop Eval I: Assessment Summary Airway patent Yes 04/29/25 10:51 COFFEE BAR ATTENDANT.CSIR Spontaneous unlabored Yes 04/29/25 10:51 COFFEE BAR ATTENDANT.CSIR respirations Mental status nausea No 04/29/25 10:51 COFFEE BAR ATTENDANT.CSIR Vomiting No 04/29/25 10:51 COFFEE BAR ATTENDANT.CSIR Anesthesia Postop Eval I: Fluid Summary Crystalloid volume administer 200 04/29/25 10:51 COFFEE BAR ATTENDANT.CSIR (ml) Colloids volume administered ( ml) Blood Product volume administered (ml) Total IV fluid infused 200 04/29/25 10:51 COFFEE BAR ATTENDANT.CSIR Anesthesia Postop Eval I: Summary Notes Anesthesia Complication No 04/29/25 10:51 COFFEE BAR ATTENDANT.CSIR Anesthesia Complication Comment: Post-operative progress note Anesthesia: Postop Eval II Evaluation Mental status: Awake Pain Level: 0 nausea: No Vomiting: No
== END 2025-04-29 11:25 | disposition home or self-care (01) ==
LOC: EN 08:28 → AC 08:30
PROVIDERS: Visit Provider Internal Medicine Gastroenterology
PROC: 0DJ08ZZ Inspection of Upper Intestinal Tract, Via Natural or Artificial Opening Endoscopic (ICD-10-PCS; CPT 43235; principal; 2025-04-29 09:25)
DX: K22.70 Barrett's esophagus without dysplasia (principal); K44.9 Diaphragmatic hernia without obstruction or gangrene; K21.00 Gastro-esophageal reflux disease with esophagitis, without bleeding; Z80.0 Family history of malignant neoplasm of digestive organs
CPT/HCPCS: 43239; 88305; J2405